=== PATIENT | female | born 1965 | race Caucasian/White ===

== ENCOUNTER 2021-04-27 05:37 | Day surgery (SDC) | payer OTHER ==
[2021-04-26 17:00] LABS: COVID AG,FIA SOURCE NASOPHARYNGEAL
[~2021-04-27] VITALS: Ht 175.3 cm; Wt 81.8 kg
[~2021-04-27 05:37] MED LIST: ACET500C51 PO; ATOR20TA65 PO; BRIM15DR8 OD; CARV3.1231 PO; FURO40TA5 PO; LATA2.5D14 OU; MOXIFLOXACIN HCL 0.5% 3 ML OPHTHALMIC SOLUTION ONE; PHENYLEPHRINE HCL 2.5% 2 ML OPHTHALMIC SOLUTION ONE; RINGERS SOLUTION,LACTATED 500 ML IV ONE; SACU1TAB PO; SILD20TA2 PO; TIMO10DR28 OD
[2021-04-27] MEDS ORDERED: PrednisoLONE ACETATE 1% 5 ML OPHTHALMIC SUSPENSION OD SCH (06:00)
[2021-04-27] MEDS: MOXIFLOXACIN HCL 0.5% 3 ML OPHTHALMIC SOLUTION OD SCH ×3 (06:16→06:27)
[2021-04-27] MEDS: PHENYLEPHRINE HCL 2.5% 2 ML OPHTHALMIC SOLUTION OD SCH ×3 (06:22→06:33)
[2021-04-27] MEDS ORDERED: LIDOCAINE/PF 1% 2 ML VIAL ONE (06:30)
[2021-04-27] MEDS ORDERED: HYALURONIDASE, HUMAN RECOMB. 150 UNITS/ML ONE (06:30)
[2021-04-27] MEDS ORDERED: BUPIVACAINE HCL/PF 0.75% 10 ML VIAL ONE (06:30)
[2021-04-27] MEDS ORDERED: DEXAMETHASONE SOD PHOS 4 MG/ML VIAL ONE (06:30)
[2021-04-27] MEDS ORDERED: SODIUM CHLORIDE 0.9% 10 ML ONE (06:30)
[2021-04-27] MEDS ORDERED: POVIDONE-IODINE 10% 15 ML SOLUTION UD ONE (06:31)
[2021-04-27] MEDS ORDERED: EPINEPHrine 1:1,000 [1 MG/ML] AMP ONE (06:33)
[2021-04-27] MEDS ORDERED: SODIUM CHLORIDE 0.9% 20 ML ONE (06:40)
[2021-04-27] MEDS ORDERED: MitoMYcin 0.2 MG/VIAL KIT FOR OPHTHALMIC USE OD ONE (07:00)
[2021-04-27] MEDS ORDERED: TETRACAINE HCL/PF 0.5% 4 ML OPHTHALMIC SOLUTION ONE (07:02)
[2021-04-27] MEDS ORDERED: NEOMYCIN/POLYMYXIN B/DEXAMETH 3.5 GM OPHTHALMIC OINTMENT ONE (08:11)
[2021-04-27] MEDS ORDERED: ACETAMINOPHEN 500 MG TABLET ONE (08:38)
[2021-04-27] MEDS ORDERED: ACETAMINOPHEN 500 MG TABLET PO ONE (08:45)
[2021-04-27] MEDS ORDERED: MIDAZOLAM HCL 2 MG/2 ML VIAL IVP ONE (12:00)
[2021-04-27] MEDS ORDERED: FentaNYL CITRATE PF 100 MCG/2 ML VIAL IVP ONE (12:00)
[2021-04-27] MEDS ORDERED: PROPOFOL 1% 20 ML VIAL IVP ONE (12:00)
== END 2021-04-27 09:22 | disposition home or self-care (01) ==
LOC: SURGERY 05:37
PROVIDERS: ATTEND Ophthalmology
DX: H40.89 Other specified glaucoma (principal); I27.20 Pulmonary hypertension, unspecified; I10 Essential (primary) hypertension; Z79.899 Other long term (current) drug therapy; Z98.890 Other specified postprocedural states
CPT/HCPCS: 66180; 87426; 93005; C1783; C9803; J0690; J1100; J2250; J2704; J3010; J3473; J3490 ×2; J7120; A9575; J0171